=== PATIENT | male | born 1990 | race Caucasian/White ===

== ENCOUNTER 2017-04-26 08:22 | Emergency (ER) | payer SELFPAY ==
[2017-04-26 08:41] VITALS: BP 110/55
[2017-04-26] MEDS ORDERED: IBUPROFEN 600 MG TABLET PO ONE (08:47)
[2017-04-26] MEDS ORDERED: IBUPROFEN 600 MG TABLET ONE (08:50)
--- NOTE | 2017-04-26 08:51 | ERNOTE ---
Upper Extremity HPI - General Extremities Pain Location: thumb: left Time Seen by Provider: 04/26/17 08:43 Source: patient Exam Limitations: no limitations - Immun/Allergies/Home Medications Immunizations: IMMUNIZATION HX Immunizations Up to Date Yes History of Influenza Vaccine No Hx Pneumococcal Vaccination No Allergies/Adverse Reactions: Allergies Allergy/AdvReac Type Severity Reaction Status Date / Time amoxicillin [Amoxicillin] Allergy Intermediate Other Verified 04/09/17 17:10 Penicillins Allergy Intermediate Other Verified 04/09/17 17:10 Home Medications: HOME MEDICATIONS Ibuprofen [Motrin] 600 mg PO Q6H PRN #40 tab 04/26/17 [Last Taken Unknown] - History of Present Illness Narrative: Patient slipped on ice when he got out of his car at home, tried to catch himself and overextended his left thumb when grabbing the car. He denies any other injury. He is concerned as he dislocated the same thumb a few years ago. Date (Duration): 04/26/17 Time (Timing): 07:00 Occurred: this morning Location of Incident: home Severity: moderate Method of Injury: Reports: fell Reason for Fall: Reports: slipped Loss of Consciousness: Reports: no loss of consciousness Modifying Factors - (Improves): Reports: rest Modifying Factors - (Worsens): Reports: movement Associated Symptoms: Denies: tingling, weakness, numbness distally Other Injuries: Reports: none Prior Treament: Denies: recently seen Review of Systems - Review of Systems Constitutional: Absent: recent illness ENT: Present: no symptoms reported Respiratory: Absent: shortness of breath, cough Cardiology: Absent: chest pain Gastrointestinal/Abdominal: Absent: nausea, abdominal pain Musculoskeletal: Present: See HPI Neurological: Absent: weakness, numbness - Patient's Past Medical History Patient History - Medical: No pertinent hx Patient History - Cardiac/Respiratory: No pertinent hx Patient History - Cancer: No Hx of Cancer Patient History - Surgical Procedures: Noncontributory Patient History - Other: None - Social History Living Situations: home Abuse History: No History of abuse Psych History: No pertinent hx Smoking Status: Current every day smoker Have you smoked in the past 12 months: Yes Do you dip or chew tobacco: No Alcohol Use: occasionally Drug Use: marijuana - Immunizations Immunizations Up to Date: Yes Hx Pneumococcal Vaccination: No History of Influenza Vaccine: No Physical Exam - Physical Exam General Appearance: Present: wd/wn, alert, no apparent distress Respiratory: Present: no respiratory distress Peripheral Pulses: N=norm/S=strong/W=weak/B=bound/A=absent: Radial (L): Normal Extremity Exam: Present: normal except - - left thumb swollen over MPjoint, tender to touch, strength and ROM seem intact though slightly limited by pain Neurological Exam: Present: alert, oriented, normal mood/affect, no motor/ sensory deficits Skin Exam: Present: normal color, warm/dry ED Progress - Vital Signs Patient's Vital Signs:: I have reviewed the patient's vital signs. Vital Signs: Vital Signs 04/26/17 04/26/17 08:33 08:41 Temperature 36.4 C L 36.4 C L Pulse Rate 69 69 Respiratory 14 14 Rate Blood Pressure 110/55 110/55 O2 Sat by Pulse 98 98 Oximetry - X-Ray X-Ray #1 X-Ray: hand - no definite fracture, questionable findings Interpretation: Reviewed by me - Progress/Reassessment Chief Complaint: Upper Extremity Injury/Problem Progress Note-Subjective: 04/26/17 09:19 discussed results and plan with patient Departure Clinical Impression: Left thumb sprain Qualifiers: Encounter type: initial encounter Sprain of finger site: metacarpophalangeal joint Qualified Code(s): S63.642A - Sprain of metacarpophalangeal joint of left thumb, initial encounter - Departure Disposition: Home self-care Condition: Good Instructions: Thumb Sprain Additional Instructions: call the orthopedic office for a follow up appointment Referrals: Eligio Fuller MD [Staff Physician] - Prescriptions: Ibuprofen [Motrin] 600 mg PO Q6H PRN #40 tab PRN Reason: Pain
== END 2017-04-26 09:31 | disposition home or self-care (01) ==
LOC: ER 08:22
DX: S63.642A Sprain of metacarpophalangeal joint of left thumb, initial encounter (principal); F17.200 Nicotine dependence, unspecified, uncomplicated; W00.0XXA Fall on same level due to ice and snow, initial encounter; Y93.89 Activity, other specified; Y92.007 Garden or yard of unspecified non-institutional (private) residence as the place of occurrence of the external cause